=== PATIENT | female | born 1995 | race Caucasian/White ===

== ENCOUNTER 2016-12-09 20:27 | Emergency (ER) | payer OTHER ==
--- NOTE | 2016-12-09 21:07 | EDPHY ---
H & P Time Seen by Provider: 12/09/16 20:46 HPI/ROS: CHIEF COMPLAINT: Right elbow and wrist injury HISTORY OF PRESENT ILLNESS: 21-year-old female right-hand dominant with up-to- date tetanus was at work at the [employer], mopping floors when she slipped and her right elbow and right wrist impacted the floor. She sustained laceration to her right dorsal wrist. She has reproducible pain to the right wrist and right elbow with range of motion. No broken glass or other broken materials. No paresthesia. No proximal distal pain or injury. PRIMARY CARE PROVIDER: REVIEW OF SYSTEMS: A ten point review of systems was performed and is negative with the exception of the items mentioned in the HPI PHYSICAL EXAM (Prior to examination, patient consented to physical exam, hands were washed and my usual and customary physical exam procedures followed) 1) GENERAL: Well-developed, well-nourished, alert and oriented. Appears to be in no acute distress. 2) HEAD: Normocephalic 3) HEENT: Pupils equal, round, reactive to light bilaterally. 4) LUNGS: Breathing comfortably. 5) MUSCULOSKELETAL: Soft compartments. Normal coloration.She has reproducible pain with range of motion of the right elbow. She is tender to palpation distal wrist with no visible deformity. 6) SKIN: On the right dorsal elbow she has a 2.5 cm well-demarcated laceration. This Is superficial. 7) VASCULAR: pulses and cap refill present are brisk 8) NEUROLOGIC: Radial, ulnar, median nerve function intact with no deficits appreciated on exam DIFFERENTIAL DIAGNOSIS: in no particular order including but not limited to fracture, sprain, compartment syndrome Procedure: Splint Upper extremity sling was applied by ER instrument room technician. After application of the splint I returned and re-examined the patient. The splint was adequately immobilizing the joint and distal to the splint the patient's circulation and sensation were intact. Patient shows no signs of compartment syndrome. Was given orthopedic precautions. Smoking Status: Never smoked Constitutional: Initial Vital Signs Temperature (C) 37 C 12/09/16 20:38 Heart Rate 93 12/09/16 20:38 Respiratory Rate 16 12/09/16 20:38 Blood Pressure 123/74 H 12/09/16 20:38 O2 Sat (%) 98 12/09/16 20:38 O2 Delivery Mode Room Air Allergies/Adverse Reactions: No Known Allergies Allergy (Unverified 12/09/16 20:37) Home Medications: Medication Instructions Recorded Multivit with Iron-Minerals 12/09/16 [Compete] MDM/Departure - MDM Imaging Results: Imaging Impressions Elbow X-Ray 12/09/16 21:01 Impression: Negative right elbow radiographs. Wrist X-Ray 12/09/16 21:02 Impression: Negative right wrist radiographs. Procedures: Procedure: Laceration repair. I explained the indications, risks and benefits for both laceration repair and anesthetic administration. Verbal consent was obtained from the patient . The laceration on the right dorsal elbow was anesthetized using 0.5% bupivicaine with epinephrine . After anesthetic administered the patient was observed for a period of time and had no apparent adverse effects. The wound was cleaned, prepped, draped in normal sterile fashion and explored to its base. No foreign body seen, no foreign bodies palpated. There were no deep structures involved. The wound was repaired with 3 simple interrupted 3 0 Prolene sutures. The wound repair was simple. The procedure was performed by myself. Patient has been informed that scarring will occur, although efforts have been made to minimize this. Procedure: Splint A sling splint and Velcro volar splint was applied by ER instrument room technician. After application of the splint I returned and re-examined the patient. The splint was adequately immobilizing the joint and distal to the splint the patient's circulation and sensation were intact. Patient shows no signs of compartment syndrome. Was given orthopedic precautions. ED Course/Re-evaluation: I discussed with the patient her imaging studies. There is no intra-articular free air of the elbow. I have examined the wound on the right elbow after irrigation. I think that traumatic arthrotomy is less than likely pathology in this patient. I do not think that the benefits of saline load testing of the joint currently outweigh the risks in this patient whom I have a low pretest index of suspicion for traumatic arthrotomy. She has been splinted, see splinting procedure note. Recommend orthopedic and work comp follow-up as occult fracture including but not limited to radial head fracture not ruled out. - Depart Disposition: Home, Routine, Self-Care Clinical Impression: Right elbow pain Right wrist sprain Qualifiers: Encounter type: initial encounter Qualified Code(s): S63.501A - Unspecified sprain of right wrist, initial encounter Laceration of right elbow Qualifiers: Encounter type: initial encounter Qualified Code(s): S51.011A - Laceration without foreign body of right elbow, initial encounter Condition: Good Instructions: Care For Your Stitches (ED), Wrist Injury (ED), Laceration (ED), Elbow Sprain (ED) Additional Instructions: Return to the ER if you develop redness, swelling, discharge, warmth to the wound, red streaks going up your arm, or any other symptoms that concern you. Stand Alone Forms: Work Comp Follow Up, Work Excuse Referrals: Haroldo Araujo MD [Medical Doctor] - 2-3 days, call for appt.
[2016-12-09 22:51] VITALS: BP 110/80; PULSE 80; RESP 14; TEMP 97.7; O2SAT 99
== END 2016-12-09 22:51 | disposition home or self-care (01) ==
PROC: 0HQDXZZ Repair Right Lower Arm Skin, External Approach (ICD-10-PCS; principal; 2016-12-09)
DX: S51.011A Laceration without foreign body of right elbow, initial encounter (principal); S63.501A Unspecified sprain of right wrist, initial encounter; W01.0XXA Fall on same level from slipping, tripping and stumbling without subsequent striking against object, initial encounter; Y92.69 Other specified industrial and construction area as the place of occurrence of the external cause; Y99.0 Civilian activity done for income or pay; Y93.E5 Activity, floor mopping and cleaning
CPT/HCPCS: A4565